=== PATIENT | female | born 1965 | race African-American/Black ===

== ENCOUNTER 2017-02-26 17:29 | Emergency (ER) | payer MEDICAID ==
[~2017-02-26] VITALS: Ht 180.3 cm; Wt 142.9 kg
[2017-02-26 17:40] VITALS: BP 131/75
[2017-02-26] MEDS ORDERED: BACITRACIN TOP OINT 1 UD PKG TOP ONE ×2 (19:43→20:00)
[2017-02-26] MEDS ORDERED: TETANUS-DIPTH-ACEL PERTUSSIS 0.5ML SYRG IM ONE (20:30)
== END 2017-02-26 20:37 | disposition home or self-care (01) ==
LOC: ER 17:31
DX: S51.011A Laceration without foreign body of right elbow, initial encounter (principal); Z88.1 Allergy status to other antibiotic agents; E78.5 Hyperlipidemia, unspecified; I10 Essential (primary) hypertension; Z23 Encounter for immunization; Y08.89XA Assault by other specified means, initial encounter; Y93.89 Activity, other specified; Y92.89 Other specified places as the place of occurrence of the external cause
CPT/HCPCS: 12001; 90471; 90715

== ENCOUNTER 2017-03-27 18:29 | Emergency (ER) | payer MEDICAID ==
[~2017-03-27] VITALS: Ht 180.3 cm; Wt 140.6 kg
[2017-03-27 18:37] VITALS: BP 132/78
== END 2017-03-27 20:36 | disposition home or self-care (01) ==
LOC: ER 18:32
DX: S90.422A Blister (nonthermal), left great toe, initial encounter (principal); S90.421A Blister (nonthermal), right great toe, initial encounter; E78.5 Hyperlipidemia, unspecified; I10 Essential (primary) hypertension; X58.XXXA Exposure to other specified factors, initial encounter; Y93.89 Activity, other specified; Y92.89 Other specified places as the place of occurrence of the external cause; Y99.8 Other external cause status; Z88.2 Allergy status to sulfonamides

== ENCOUNTER 2017-03-29 21:31 | Emergency (ER) | payer MEDICAID ==
[~2017-03-29] VITALS: Ht 180.3 cm; Wt 140.6 kg
[2017-03-30 05:56] VITALS: BP 114/74
== END 2017-03-30 06:52 | disposition home or self-care (01) ==
LOC: ER 21:36
DX: S90.422D Blister (nonthermal), left great toe, subsequent encounter (principal); S90.421D Blister (nonthermal), right great toe, subsequent encounter; Z88.1 Allergy status to other antibiotic agents; E78.5 Hyperlipidemia, unspecified; I10 Essential (primary) hypertension

== ENCOUNTER 2017-06-09 22:51 | Emergency (ER) | payer MEDICAID ==
[~2017-06-09] VITALS: Ht 180.3 cm; Wt 135.2 kg
[2017-06-09 23:22] VITALS: BP 132/71
[2017-06-10] MEDS ORDERED: BACITRACIN TOP OINT 1 UD PKG TOP ONE (00:45)
== END 2017-06-10 01:45 | disposition home or self-care (01) ==
LOC: ER 22:59
DX: S61.212A Laceration without foreign body of right middle finger without damage to nail, initial encounter (principal); M25.511 Pain in right shoulder; R20.0 Anesthesia of skin; I10 Essential (primary) hypertension; E78.5 Hyperlipidemia, unspecified; X58.XXXA Exposure to other specified factors, initial encounter; Y93.89 Activity, other specified; Y99.8 Other external cause status; Y92.89 Other specified places as the place of occurrence of the external cause
CPT/HCPCS: 12001; 73030; 93971